=== PATIENT | female | born 1945 | race Caucasian/White ===

== ENCOUNTER 2021-08-22 10:10 | Emergency (ER) | payer MEDICARE ==
[~2021-08-22] VITALS: Ht 162.6 cm; Wt 84.0 kg
[2021-08-22] MEDS ORDERED: ONDANSETRON PF 4 MG/2 ML VIAL. IVP ONE ×2 (12:00→14:15)
[2021-08-22] MEDS ORDERED: MORPHINE SULFATE 4 MG/ML INJ. IVP ONE ×3 (12:00→14:15)
[2021-08-22 12:07] LABS: BILIRUBIN,URINE NEGATIVE (NEG); CLARITY,URINE CLEAR; COLOR,URINE YELLOW; NITRITE,URINE POSITIVE (NEG); PROTEIN,URINE 100 mg/dL (NEG-TRACE); UROBILINOGEN,URINE 0.2 mg/dL (0.2 mg/dL)
[2021-08-22 12:28] LABS: HYALINE CASTS, URINE OCCASIONAL /HPF
[2021-08-22 12:29] LABS: BACTERIA,URINE MANY /HPF (0-FEW); WBC,URINE >40 /HPF (0-4)
[2021-08-22 12:39] LABS: BASO # 0.1 x10^3/uL (0.0-0.2); BASO % 1 % (0-3); EOS # 0.2 x10^3/uL (0.0-0.7); EOS % 2 % (0-3); HEMOGLOBIN 11.4 g/dL (12.0-15.5); LYMPH # 1.5 x10^3/uL (1.0-4.8); LYMPH % 14 % (24-48); MEAN CORPUSCULAR HEMOGLOBIN 26 pg (25-35); MEAN CORPUSCULAR HGB CONC 33 g/dL (31-37); MEAN CORPUSCULAR VOLUME 80 fL (79-100); MONO % 9 % (0-9); NEUT # 7.9 x10^3/uL (1.8-7.7); NEUT % 74 % (31-73); PLATELET COUNT 347 x10^3/uL (140-400); RED BLOOD COUNT 4.39 x10^6/uL (3.50-5.40); RED CELL DISTRIBUTION WIDTH 18.5 % (11.5-14.5); WHITE BLOOD COUNT 10.6 x10^3/uL (4.0-11.0)
[2021-08-22 12:51] LABS: CALCIUM 9.5 mg/dL (8.5-10.1); CREATININE 1.1 mg/dL (0.6-1.0); GFR 48.2; POTASSIUM 3.5 mmol/L (3.5-5.1)
[2021-08-22 12:57] LABS: ALBUMIN 3.5 g/dL (3.4-5.0); TOTAL BILIRUBIN 0.3 mg/dL (0.2-1.0); TOTAL PROTEIN 6.9 g/dL (6.4-8.2)
[2021-08-22] MEDS ORDERED: cefTRIAXone IV Push 1 GM VIAL. IVP ONE (13:00)
[2021-08-22] MEDS ORDERED: CONTRAST GIVEN. MC PRN (13:15)
[2021-08-22] MEDS ORDERED: IOHEXOL 300 MG/ML 100ML VIAL. IV ONE (13:15)
--- NOTE | 2021-08-22 14:39 | RAD ---
Exam Date: 08/22/2021 1:[address] ABDOMEN+PELVIS W Indication: Reason: upper abd pain / Spl. Instructions: OMNI 300 INJ. 60 MLS / History: . TECHNIQUE: CT examination of the abdomen and pelvis was performed following the administration of no nionic intravenous contrast. One or more of the following dose reduction techniques were utilized: *Automated exposure control (AEC) *Adjustment of mA and/or kV according to patient size *Use of iterative reconstruction technique *CT scan done according to ALARA, or ALARA/IMAGE GENTLY FINDINGS: The visualized lung bases demonstrate subsegmental atelectasis, scarring, and/or fibrosis. Heart is enlarged. There is a 1.2 x 0.9 (axial) x 2.3 cm (craniocaudal) hypodense lesion in the body the pancreas on axi al image 32 series 2 and coronal image 20 series 4. There are small bilateral renal cysts. The liver, gallbladder, spleen, pancreas, adrenal glands and kidneys are otherwise normal. Urinary bladder is normal in appearance. Diverticulosis coli is seen without bowel obstruction or inflammation. The appendix is normal. Moderate atherosclerotic calcifications are seen. No lymphadenopathy or ascites is seen. Degenerative changes are seen in the spine. IMPRESSION: No evidence of acute intra-abdominal pathology. Hypodense lesion in the body of the pancreas measuring 2.3 cm is nonspecific. Pseudocyst or cystic n eoplasm are in the differential. Further evaluation with nonemergent MRI/MRCP is recommended. Christopher rison to prior exams if available is recommended to document stability. Electronically signed by: Flroin Baez MD (08/22/2021 2:36 PM) [facility]
--- NOTE | 2021-08-22 14:58 | PHYS DOC ---
Past Medical History Additional Past Medical Histor: SHINGLES,CHRONIC PAIN,INTERSTITIAL LUNG DISEASE,IMMUNOSUPPRESSED Past Surgical History: Other Additional Past Surgical Histo: ABD SURG,SPINAL STIMULATOR Smoking Status: Never Smoker Alcohol Use: None General Adult EDM: Chief Complaint: ABDOMINAL PAIN HPI: HPI: Patient is a 76 year old female who presents with 1.5 months of epigastric abdominal pain. Constant. Dull. Does not radiate. Associate with some nausea, but no vomiting. No fevers or chills. Has had some constipation, but had a normal bowel movement yesterday. No bloody or melanotic stools. Has still been able to eat okay. Denies dysuria, urgency, frequency. Denies cancer history. Denies tobacco abuse or etoh. Review of Systems: Review of Systems: Constitutional: Denies fever or chills. [] Eyes: Denies change in visual acuity. [] HENT: Denies nasal congestion or sore throat. [] Respiratory: Denies cough or shortness of breath. [] Cardiovascular: Denies chest pain or edema. [] GI: Reports abdominal pain and nausea. : Denies dysuria. [] Musculoskeletal: Denies back pain or joint pain. [] Integument: Denies rash. [] Neurologic: Denies headache, focal weakness or sensory changes. [] Endocrine: Denies polyuria or polydipsia. [] Lymphatic: Denies swollen glands. [] Psychiatric: Denies depression or anxiety. [] Heart Score: C/O Chest Pain: No Current Medications: Current Medications Medications (Trade) Dose Ordered Sig/Cliff Start Time Stop Time Status Last Admin Dose Admin Ceftriaxone Sodium (Rocephin) 1 gm 1X ONCE 08/22/21 13:00 08/22/21 13:59 DC Info (CONTRAST GIVEN -- Rx MONITORING) 1 each PRN DAILY PRN 08/22/21 13:15 08/24/21 13:14 Iohexol (Omnipaque 300 Mg/ml) 60 ml 1X ONCE 08/22/21 13:15 08/22/21 13:16 DC 08/22/21 13:42 60 ML Levofloxacin/ Dextrose 150 ml @ 100 mls/hr 1X ONCE 08/22/21 14:30 08/22/21 15:59 08/22/21 14:47 100 MLS/HR Morphine Sulfate (Morphine Sulfate) 4 mg 1X ONCE 08/22/21 14:15 08/22/21 14:25 DC Ondansetron HCl (Zofran) 4 mg 1X ONCE 08/22/21 14:15 08/22/21 14:18 DC 08/22/21 14:37 4 MG Allergies: Allergies: Allergies Coded Allergies Type Severity Reaction Last Updated Verified erythromycin base Allergy Intermediate UNKNOWN 08/22/21 Yes meropenem Allergy Intermediate Rash 08/22/21 Yes Physical Exam: PE: Constitutional: Well developed, well nourished, no acute distress, non-toxic appearance. [] HENT: Normocephalic, atraumatic, bilateral external ears normal, oropharynx moist, no oral exudates, nose normal. [] Eyes: PERRLA, EOMI, conjunctiva normal, no discharge. [] Neck: Normal range of motion, no tenderness, supple, no stridor. [] Cardiovascular:Heart rate regular rhythm, no murmur [] Lungs & Thorax: Bilateral breath sounds clear to auscultation [] Abdomen: Soft, mild focal epigastric tenderness to palpation Skin: Warm, dry, no erythema, no rash. [] Back: No tenderness, no CVA tenderness. [] Extremities: No tenderness, no cyanosis, no clubbing, ROM intact, no edema. [] Neurologic: Alert and oriented X 3, normal motor function, normal sensory function, no focal deficits noted. [] Psychologic: Affect normal, judgement normal, mood normal. [] Current Patient Data: Labs: Laboratory Tests Test 08/22/21 11:50 08/22/21 12:14 08/22/21 12:31 Urine Collection Type Unknown Urine Color Yellow Urine Clarity Clear Urine pH 6.0 (<5.0-8.0) Urine Specific [place] 1.010 (1.000-1.030) Urine Protein 100 mg/dL (NEG-TRACE) Urine Glucose (UA) Negative mg/dL (NEG) Urine Ketones (Stick) Negative mg/dL (NEG) Urine Blood Trace (NEG) Urine Nitrite Positive (NEG) Urine Bilirubin Negative (NEG) Urine Urobilinogen Dipstick 0.2 mg/dL (0.2 mg/dL) Urine Leukocyte Esterase Moderate (NEG) Urine RBC 3-5 /HPF (0-2) Urine WBC >40 /HPF (0-4) Urine Squamous Epithelial Cells Few /LPF Urine Bacteria Many /HPF (0-FEW) Urine Hyaline Casts Occasional /HPF Urine Mucus Slight /LPF White Blood Count 10.6 x10^3/uL (4.0-11.0) Red Blood Count 4.39 x10^6/uL (3.50-5.40) Hemoglobin 11.4 g/dL (12.0-15.5) L Hematocrit 35.0 % (36.0-47.0) L Mean Corpuscular Volume 80 fL (79-100) Mean Corpuscular Hemoglobin 26 pg (25-35) Mean Corpuscular Hemoglobin Concent 33 g/dL (31-37) Red Cell Distribution Width 18.5 % (11.5-14.5) H Platelet Count 347 x10^3/uL (140-400) Neutrophils (%) (Auto) 74 % (31-73) H Lymphocytes (%) (Auto) 14 % (24-48) L Monocytes (%) (Auto) 9 % (0-9) Eosinophils (%) (Auto) 2 % (0-3) Basophils (%) (Auto) 1 % (0-3) Neutrophils # (Auto) 7.9 x10^3/uL (1.8-7.7) H Lymphocytes # (Auto) 1.5 x10^3/uL (1.0-4.8) Monocytes # (Auto) 1.0 x10^3/uL (0.0-1.1) Eosinophils # (Auto) 0.2 x10^3/uL (0.0-0.7) Basophils # (Auto) 0.1 x10^3/uL (0.0-0.2) Sodium Level 139 mmol/L (136-145) Potassium Level 3.5 mmol/L (3.5-5.1) Chloride Level 103 mmol/L (98-107) Carbon Dioxide Level 25 mmol/L (21-32) Anion Gap 11 (6-14) Blood Urea Nitrogen 10 mg/dL (7-20) Creatinine 1.1 mg/dL (0.6-1.0) H Estimated GFR (Cockcroft-Gault) 48.2 BUN/Creatinine Ratio 9 (6-20) Glucose Level 108 mg/dL (70-99) H Calcium Level 9.5 mg/dL (8.5-10.1) Total Bilirubin 0.3 mg/dL (0.2-1.0) Aspartate Amino Transferase (AST) 16 U/L (15-37) Alanine Aminotransferase (ALT) 22 U/L (14-59) Alkaline Phosphatase 77 U/L (46-116) Troponin I High Sensitivity 16 ng/L (4-50) Total Protein 6.9 g/dL (6.4-8.2) Albumin 3.5 g/dL (3.4-5.0) Albumin/Globulin Ratio 1.0 (1.0-1.7) Lipase 117 U/L (73-393) SARS-CoV-2 Antigen (Rapid) Negative (NEGATIVE) Laboratory Tests 08/22/21 12:14 Laboratory Tests 08/22/21 12:14 Vital Signs: Vital Signs Date Time Temp Pulse Resp B/P (MAP) Pulse Ox O2 Delivery O2 Flow Rate FiO2 08/22/21 14:41 20 95 Room Air 08/22/21 13:47 93 170/106 (127) 08/22/21 10:10 98.9 98.9 EKG: EKG: [] Radiology/Procedures: Radiology/Procedures: [] Impression: [facility] [id number] [place], [place] [id number] IMAGING REPORT Signed PATIENT: BHAVIN OSPINA ACCOUNT: [id number] : 1945 LOCATION: ER AGE: 76 SEX: F EXAM STATUS: REG ER ORD. PHYSICIAN: LEXA GARDNER MD REASON: upper abd pain PROCEDURE: CT ABD PELV W/ IV CONTRST ONLY Exam Date: 08/22/2021 1:[address] ABDOMEN+PELVIS W Indication: Reason: upper abd pain / Spl. Instructions: OMNI 300 INJ. 60 MLS / History: . TECHNIQUE: CT examination of the abdomen and pelvis was performed following the administration of nonionic intravenous contrast. One or more of the following dose reduction techniques were utilized: *Automated exposure control (AEC) *Adjustment of mA and/or kV according to patient size *Use of iterative reconstruction technique *CT scan done according to ALARA, or ALARA/IMAGE GENTLY FINDINGS: The visualized lung bases demonstrate subsegmental atelectasis, scarring, and/or fibrosis. Heart is enlarged. There is a 1.2 x 0.9 (axial) x 2.3 cm (craniocaudal) hypodense lesion in the body the pancreas on axial image 32 series 2 and coronal image 20 series 4. There are small bilateral renal cysts. The liver, gallbladder, spleen, pancreas, adrenal glands and kidneys are otherwise normal. Urinary bladder is normal in appearance. Diverticulosis coli is seen without bowel obstruction or inflammation. The appendix is normal. Moderate atherosclerotic calcifications are seen. No lymphadenopathy or ascites is seen. Degenerative changes are seen in the spine. IMPRESSION: No evidence of acute intra-abdominal pathology. Hypodense lesion in the body of the pancreas measuring 2.3 cm is nonspecific. Pseudocyst or cystic neoplasm are in the differential. Further evaluation with nonemergent MRI/MRCP is recommended. Comparison to prior exams if available is recommended to document stability. Electronically signed by: Josef Baez MD (08/22/2021 2:36 PM) [facility] DICTATED and SIGNED BY: JOSEF BAEZ MD DATE: 08/22/21 [id number] 0 Course & Med Decision Making: Course & Med Decision Making Pertinent Labs and Imaging studies reviewed. (See chart for details) 76-year-old female presents with 1.5 months of epigastric abdominal pain. Afebrile and vital signs are stable. Work-up here concerning for nitrite positive UTI. Given Levaquin here. Will be discharged on ciprofloxacin. CT scan showed a cystic structure in the body of the pancreas, that is concerning for simple pseudocyst versus a neoplasm. Patient was made aware of these findings and the need for prompt follow-up with her outpatient doctors for further evaluation. Patient understands this could represent a possible cancer and delay in treatment could be seriously detrimental to her health. Return precautions for worsening/uncontrolled pain, severe n/v, fever/chills. 1519 Yusef Disclaimer: Yusef Disclaimer: This electronic medical record was generated, in whole or in part, using a voice recognition dictation system. Departure Departure Impression: Primary Impression: UTI (urinary tract infection) Additional Impression: Pancreatic mass Disposition: HOME / SELF CARE / HOMELESS Condition: STABLE Referrals: NASIM MACDONALD MD (PCP) Please call Dr. Agrawal office first thing on Tuesday to arrange quick follow up. Additional Instructions: Your CT scan showed a mass in the body of your pancreas that was 1.2 x 0.9 x 2.3 cm. This is concerning for potential cancer. Please call your primary care doctor first thing on Tuesday morning to arrange for follow-up appointment as this will need to be looked into further with a specialized MRI or other testing. If you have a delay in following up this could potentially be detrimental to your health. There is a possibility this could be a benign cyst rather than a cancer, but this will need further work-up to determine. If your pain is not controlled with home medications, your pain worsens, you have uncontrollable nausea/vomiting, or you are unable to care for yourself at home please return to the emergency department immediately for reevaluation. Your work-up also showed a urinary tract infection. I would like to treat you with a medication called ciprofloxacin. Please picker and packer and take the entire prescription Scripts Ciprofloxacin Hcl (CIPRO) 500 Mg Tablet 500 MG PO BID for 7 Days, #14 TAB 0 Refills Prov: LEXA GARDNER MD 08/22/21 Hydrocodone Bit/Acetaminophen (HYDROCODONE-APAP 5-325 ) 1 Tab Tablet 1 TAB PO PRN Q4-6HRS PRN for PAIN, #18 TAB 0 Refills Prov: LEXA GARDNER MD 08/22/21 Ondansetron Hcl (ZOFRAN) 4 Mg Tablet 1 TAB PO PRN Q6-8HRS for nausea, #30 TAB 0 Refills Prov: LEXA GARDNER MD 08/22/21 LEXA GARDNER MD Aug 22, 2021 14:58
[2021-08-22] MEDS ORDERED: HYDR-2761 PO ×2 (15:27→15:44)
[2021-08-22] MEDS ORDERED: ONDA4TAB7 PO ×2 (15:27→15:44)
[2021-08-22] MEDS ORDERED: CIPR500S2 PO (15:27)
[2021-08-22] MEDS ORDERED: CIPR500T94 PO ×2 (15:28→15:44)
[2021-08-22] MEDS ORDERED: HYDROcodone/APAP 5/325MG 1 TAB TABLET PO ONE (17:00)
[2021-08-22 17:14] VITALS: BP 170/82
--- NOTE | 2021-08-24 15:06 | NUR ---
IP: Informed pt's granddaughter of negative covid results due to pt unable to speak. She verbalized understanding.
== END 2021-08-22 17:21 | disposition home or self-care (01) ==
LOC: ER 10:10
DX: N39.0 Urinary tract infection, site not specified (principal); K86.89 Other specified diseases of pancreas; Z20.822 Contact with and (suspected) exposure to COVID-19
CPT/HCPCS: 36415; 74177; 80053; 81001; 83690; 84484; 85025; 87077; 87086; 87186; 87426; 96365; 96366; 96375; 96376; 99285; J1956; J2270; J2405; Q9967; U0003; U0005